=== PATIENT | female | born 1965 ===

== ENCOUNTER 2017-01-18 00:36 | Inpatient (IN) | payer OTHER ==
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
[2017-01-18 03:39] LABS: BASO % 0.3 % (0.0-2.0); EOS # 0.1 K/uL (0.0-0.7); EOS % 1.5 % (0.0-4.0); HEMATOCRIT 37.9 % (34.0-47.0); LYMPH # 2.6 K/uL (1.0-4.3); LYMPH % 41.6 % (20.0-40.0); MEAN CELL VOLUME 64.5 fl (81.0-99.0); MEAN CORPUSCULAR HEMOGLOBIN 20.2 pg (27.0-31.0); MEAN CORPUSCULAR HGB CONC 31.3 g/dL (33.0-37.0); MEAN PLATELET VOLUME 9.3 fl (7.2-11.7); MONO # 0.5 K/uL (0.0-0.8); MONO % 7.5 % (0.0-10.0); NEUT % 49.1 % (50.0-75.0); NRBC % 0.2 % (0.0-0.0); RED CELL DISTRIBUTION WIDTH 26.8 % (11.5-14.5); WHITE BLOOD COUNT 6.2 K/uL (4.8-10.8)
[2017-01-18 03:47] LABS: ALB/GLOB RATIO 1.1 (1.0-2.1); ALKALINE PHOSPHATASE 152 U/L (38-126); ALT/SGPT 41 U/L (9-52); AST/SGOT 76 U/L (14-36); BILIRUBIN,TOTAL 0.8 mg/dl (0.2-1.3); BLOOD UREA NITROGEN 10 mg/dl (7-17); CALCIUM 8.4 mg/dL (8.4-10.2); CARBON DIOXIDE 22 mmol/L (22-30); GFR AFRICAN-AMERICAN > 60; GLUCOSE,RANDOM 84 mg/dL (65-105); POTASSIUM 3.7 MMOL/L (3.6-5.0); SODIUM 156 mmol/l (132-148); TOTAL PROTEIN 7.8 G/DL (6.3-8.2)
[2017-01-18 03:49] LABS: CHLORIDE 112 mmol/L (98-107)
[2017-01-18] MEDS ORDERED: Sodium Chloride 0.9% 500 ML IV STA (04:06)
[2017-01-18 04:07] LABS: ALCOHOL SERUM 437 mg/dl (0-10)
[2017-01-18] MEDS ORDERED: Multivitamin (MVI) 10 ML, Thiamine 100 MG, Folic Acid 1 MG in Sodium Chloride 0.9% 1,00... IV ONE (04:45)
[2017-01-18] MEDS ORDERED: Multivitamin (MVI) 10 ML, Folic Acid 1 MG, Thiamine 100 MG in Dextrose 5%/0.45% NS 1,00... IV ONE (04:46)
[2017-01-18 05:05] LABS: PARTIAL THROMBOPLASTIN TIME 28.3 SECONDS (23.3-32.5)
--- NOTE | 2017-01-18 06:03 | ED PDOC ---
- Laboratory Results Result Diagrams: 01/18/17 02:02 01/18/17 03:30 Urine POC: Negative - ECG O2 Sat by Pulse Oximetry: 98 Medical Decision Making Medical Decision Making: Patient s/o from Quinten Holguin PA-C at 0600 pending sobriety and crisis eval. Patient s/o to Dr. Draper at 0700 pending chemistry and crisis eval. Scribe Attestation: Documented by Magda Kyle acting as a scribe for Simón Tompkins MD. Provider Scribe Attestation: All medical record entries made by the Scribe were at my direction and personally dictated by me. I have reviewed the chart and agree that the record accurately reflects my personal performance of the history, physical exam, medical decision making, and the department course for this patient. I have also personally directed, reviewed, and agree with the discharge instructions and disposition. Disposition - Clinical Impression Clinical Impression: Urinary tract infection, Alcohol abuse, Suicide attempt - POA Present On Arrival: None - Disposition Disposition: Transfer of Care Disposition Time: 07:00 Condition: STABLE Patient Signed Over To: Shade Draper Handoff Comments: pending chemistry and crisis eval
[2017-01-18 06:42] LABS: RBC URINE 3 /hpf (0-3); URINE BACTERIA RARE (<OCC); URINE BILIRUBIN NEGATIVE (NEGATIVE); URINE BLOOD MODERATE (NEGATIVE); URINE COLOR YELLOW (YELLOW); URINE GLUCOSE (UA) NEG (Normal); URINE KETONE NEGATIVE (NEGATIVE); URINE LEUKOCYTE ESTERASE SMALL Leu/uL (Negative); URINE PROTEIN 30 mg/dL (NEGATIVE); URINE UROBILINOGEN 0.2-1.0 mg/dL (0.2-1.0); WBC URINE 25 /hpf (0-5)
[2017-01-18 07:01] LABS: BLOOD UREA NITROGEN 10 mg/dl (7-17); CALCIUM 7.8 mg/dL (8.4-10.2); CARBON DIOXIDE 22 mmol/L (22-30); CHLORIDE 110 mmol/L (98-107); GFR AFRICAN-AMERICAN > 60; GLUCOSE,RANDOM 147 mg/dL (65-105); POTASSIUM 3.1 MMOL/L (3.6-5.0); SODIUM 150 mmol/l (132-148)
--- NOTE | 2017-01-18 07:11 | ED PDOC ---
- Laboratory Results Result Diagrams: 01/18/17 02:02 01/18/17 06:40 Interpretation Of Abn Labs: urine wbc, k low, etoh pos Urine POC: Negative - ECG O2 Sat by Pulse Oximetry: 98 - Radiology X-Ray: Interpreted by Me, Viewed By Me X-Ray Interpretation: No Acute Disease - CT Scan/US head Other Rad Studies (CT/US): Read By Radiologist Other Rad Interpretation: no acute - Progress ED Course And Treament: 710: Stable. Took over care from Dr. Tompkins. Chevy on head ct. He gave potassium. 1034: Medically stable for crisis eval. UTI med given. Hypokalemia med given. 1147: Stable. Crisis will admit. Disposition - Clinical Impression Clinical Impression: Urinary tract infection, Alcohol abuse, Suicide attempt, Depression - POA Present On Arrival: None - Disposition Disposition: Admitted as In-Patient Disposition Time: 11:00 Condition: STABLE
[2017-01-18] MEDS ORDERED: Potassium Chloride 20 mEq ER Tab PO ONE (08:49)
[2017-01-18] MEDS: Potassium Chloride 20 mEq ER Tab PO SCH (09:20)
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
--- NOTE | 2017-01-18 10:34 | RAD ---
HISTORY: Medical clearance. COMPARISON: No prior. FINDINGS: LUNGS: No active pulmonary disease. PLEURA: No significant pleural effusion identified, no pneumothorax apparent. CARDIOVASCULAR: Normal. OSSEOUS STRUCTURES: No significant abnormalities. VISUALIZED UPPER ABDOMEN: Normal. OTHER FINDINGS: None. IMPRESSION: No active disease.
--- NOTE | 2017-01-18 10:46 | RAD ---
PROCEDURE: Left Knee Radiographs. HISTORY: Pain. COMPARISON: None. FINDINGS: BONES: Limited examination. AP, lateral and steep oblique views. No evidence of fracture. JOINTS: Normal. No osteoarthritis. JOINT EFFUSION: None. OTHER FINDINGS: None. IMPRESSION: Normal limited examination.
--- NOTE | 2017-01-18 10:57 | RAD ---
PROCEDURE: Left forearm HISTORY: fall, contusion COMPARISON: None. TECHNIQUE: Standard protocol for this study/examination. FINDINGS: No significant/acute osseous, articular or soft tissue abnormalities. IMPRESSION: No acute findings related to/accounting for the clinical presentation.
[2017-01-18] MEDS ORDERED: Magnesium Hydroxide Susp 30 ml UD PO PRN (20:08)
[2017-01-18] MEDS ORDERED: DiphenhydrAMINE 50 mg/ml Inj IM PRN (20:08)
[2017-01-18] MEDS ORDERED: Alum-Mag Hydrox-Simethicone Susp (30 mL) PO PRN (20:08)
[2017-01-18] MEDS ORDERED: Bismuth Subsalicylate 262 mg/15 ml Sus (240 ml) PO PRN (20:11)
[2017-01-19 08:02] LABS: T4 6.51 ug/dl (5.5-11.0)
[2017-01-19 08:16] LABS: THYROID STIMULATING HORMONE 3.06 mIU/ML (0.46-4.68)
[2017-01-19] MEDS: Multivitamin With Minerals Tab PO SCH (09:13)
[2017-01-19] MEDS: Potassium Chloride 20 mEq ER Tab PO SCH (09:13)
[2017-01-19 09:16] VITALS: RESP 18
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
[2017-01-19] MEDS ORDERED: Iohexol 300 100 ML IJ ONE (20:07)
[2017-01-19] MEDS ORDERED: Sodium Chloride 0.9% 50 ML IV ONE (20:07)
--- NOTE | 2017-01-19 21:12 | PCM.PSYCH ---
Initial Psychiatric Evaluation - Initial Psychiatric Evaluation Chief Complaint (in patient's own words): presented to er after drinking reportedly having suicidal thoughts Patient's Reaction to Hospitalization: verbally agreeable to remain History of Present Illness and Precipitating Events: reports was at home became increasingly depressed a Current Medications: Active Medications Generic Name Dose Route Start Last Admin Trade Name Freq PRN Reason Stop Dose Admin Acetaminophen 650 mg 01/18/17 20:08 01/19/17 00:59 Tylenol 325mg Tab PO 650 mg Q4 PRN Administration pain level 4-7 Al Hydrox/Mg Hydrox/Simethicone 30 ml 01/18/17 20:08 Maalox Plus 30 Ml PO Q4 PRN Dyspepsia Bismuth Subsalicylate 524 mg 01/18/17 20:11 Pepto-Bismol PO Q4 PRN Diarrhea Diphenhydramine HCl 50 mg 01/18/17 20:08 Benadryl IM Q6 PRN Extrapyramidal S/S Unable PO Diphenhydramine HCl 50 mg 01/18/17 20:11 Benadryl PO HS PRN Sleep Folic Acid 1 mg 01/19/17 09:00 01/19/17 09:13 Folic Acid PO 1 mg DAILY [facility] Administration Haloperidol 5 mg 01/18/17 20:08 Haldol PO Q4 PRN Agitation Haloperidol Lactate 5 mg 01/18/17 20:08 Haldol IM Q4 PRN Agitation, Unable to Take PO Lorazepam 2 mg 01/18/17 20:08 01/19/17 00:59 Ativan PO 2 mg Q4 PRN Administration Anxiety/Agitation Lorazepam 2 mg 01/18/17 20:08 Ativan IM Q4 PRN Anxiety/Agitation,Unable PO Lorazepam 1 mg 01/19/17 09:00 01/19/17 16:56 Ativan PO 1 mg TID [facility] Administration Magnesium Hydroxide 30 ml 01/18/17 20:08 Milk Of Magnesia PO HS PRN Constipation Multivitamins/Minerals 1 tab 01/19/17 09:00 01/19/17 09:13 Therapeutic-M Tab PO 1 tab DAILY [facility] Administration Nitrofurantoin 100 mg 01/19/17 22:00 Nitrofurantoin PO Q6 [facility] Potassium Chloride 40 meq 01/18/17 09:00 01/19/17 09:13 K-Dur 20 Meq Er Tab PO 40 meq DAILY [facility] Administration Thiamine HCl 100 mg 01/19/17 09:00 01/19/17 09:16 Vitamin B1 Tab PO 100 mg DAILY [facility] Administration Past Psychiatric History - Past Psychiatric History Prior Professional Help: defers Prior Psychiatric Treatment: defers History of Abuse: defers History of ETOH/Drug Use: reports hx of etoh abuse, reports began drinking approx. 6-7 years ago, became increasing depressed because she is living alone, two adult children have their own families and two minor children are living with pt's mother in the [place], [place]. Pertinent Medical Hx (Current Medical&Sleep Prob, Allergies): Allergies Allergy/AdvReac Type Severity Reaction Status Date / Time No Known Allergies Allergy Verified 01/18/17 00:53 Docusate [Colace] 100 mg PO BID 01/18/17 Melatonin [Melatonin] 5 mg PO HS 01/18/17 Multivitamin [Multi-Vitamin Daily] 1 tab PO DAILY 01/18/17 [place]-3 Fatty Acids/Fish Oil [Fish Oil 1,000 mg Capsule] 1 cap PO BID 01/18/17 Pantoprazole Sodium [Protonix] 40 mg PO BID 01/18/17 Review of Systems - Gastrointestinal Gastrointestinal: Abdominal Pain (PT REPORTS SHE HAS A HISTORY OF CIRRHOSIS) - Psychiatric Psychiatric: Abnormal Sleep Pattern, Anhedonia, Anxiety, Depression, Difficulty Concentrating, Suicidal Ideation Mental Status Examination - Personal Presentation Personal Presentation: Looks younger than stated age - Affect Affect: Constricted - Motor Activity Motor Activity: Calm, Psychomotor Retardation - Reliability in Providing Information Reliability in Providing Information: Fair - Speech Speech: Organized - Mood Mood: Depressed - Formal Thought Process Formal Thought Process: No Impairment - Cognitive Functions Orientation: Person, Place, Situation, Time Sensorium: Alert Attention/Concentration: Attentive Judgement: Imparied, as evidence by: Other Memory: Remote intact, as evidenced by: Other - Risk Risk: Suicidal, Withdrawal - Strength & Assets Inventory Strength & Assets Inventory: Cooperative Additional comments: children reported as leverage - Limitations Limitations: Living alone DSM 5 DX - DSM 5 DSM 5 Diagnosis: Major Depressive Disorder Recurrent Moderate to Severe without Psychosis Substance Abuse: Etoh active Substance Induced Mood Disorder - Recommended/Plan of Treatment Treatment Recommendations and Plan of Treatment: inpt admission per attending md vital signs and clinical observation per protocol and per clinical status Will start Lexapro 5mg po daily Hospitalist Consult Discharge planning in progress Projected ELOS: 5-7 days Prognosis: guarded Discharge Plan and Discharge Criteria: free of suicidal ideations free of notable withdrawal signs and symptoms safe - Smoking Cessation Smoking Cessation Initiated: No Reason for not providing: defers
[2017-01-19] MEDS: Nitrofurantoin 25 MG/5 ML SUSP PO SCH (21:41)
[2017-01-20 08:06] LABS: BASO % 0.9 % (0.0-2.0); EOS # 0.1 K/uL (0.0-0.7); EOS % 3.3 % (0.0-4.0); LYMPH # 0.8 K/uL (1.0-4.3); LYMPH % 22.2 % (20.0-40.0); MEAN CELL VOLUME 64.3 fl (81.0-99.0); MEAN PLATELET VOLUME 9.8 fl (7.2-11.7); MONO # 0.5 K/uL (0.0-0.8); MONO % 14.2 % (0.0-10.0); NEUT % 59.4 % (50.0-75.0); NRBC % 0.3 % (0.0-0.0); RED CELL DISTRIBUTION WIDTH 25.7 % (11.5-14.5); WHITE BLOOD COUNT 3.4 K/uL (4.8-10.8)
[2017-01-20 08:11] LABS: IRON 44 ug/dL (37-170)
[2017-01-20 08:14] LABS: ALB/GLOB RATIO 0.9 (1.0-2.1); ALKALINE PHOSPHATASE 129 U/L (38-126); ALT/SGPT 41 U/L (9-52); AST/SGOT 63 U/L (14-36); BILIRUBIN,TOTAL 1.3 mg/dl (0.2-1.3); BLOOD UREA NITROGEN 8 mg/dl (7-17); CALCIUM 8.6 mg/dL (8.4-10.2); CARBON DIOXIDE 25 mmol/L (22-30); CHLORIDE 103 mmol/L (98-107); GFR AFRICAN-AMERICAN > 60; GLUCOSE,RANDOM 90 mg/dL (65-105); MAGNESIUM 1.8 MG/DL (1.6-2.3); PHOSPHOROUS 4.1 mg/dl (2.5-4.5); POTASSIUM 3.9 MMOL/L (3.6-5.0); SODIUM 140 mmol/l (132-148)
--- NOTE | 2017-01-20 08:42 | CT ---
PROCEDURE: CT Abdomen and Pelvis with contrast HISTORY: Right CVA Tenderness. UA + Nitrates and + LE COMPARISON: None. TECHNIQUE: CT scan of the abdomen and pelvis was performed after intravenous administration of contrast. Oral contrast was not administered. Coronal and sagittal reformatted images were obtained. Contrast dose: 100 mL Omnipaque 300 Radiation dose: Total exam DLP = 469.69 mGy-cm. This CT exam was performed using one or more of the following dose reduction techniques: Automated exposure control, adjustment of the mA and/or kV according to patient size, and/or use of iterative reconstruction technique. FINDINGS: LOWER THORAX: There is bibasilar subsegmental atelectasis. LIVER: The liver is normal in size and there is homogeneous enhancement and diffuse low-attenuation with lobular configuration. No gross lesion or ductal dilatation. GALLBLADDER AND BILE DUCTS: The gallbladder is contracted. PANCREAS: The pancreas is normal in size and there is homogeneous enhancement. No gross lesion or ductal dilatation. SPLEEN: There is mild splenomegaly. No focal lesion. ADRENALS: Both adrenal glands are normal in size without discrete nodule. KIDNEYS AND URETERS: Both kidneys are normal in size and there is homogeneous enhancement without hydronephrosis or focal mass with VASCULATURE: The aorta is normal in caliber. There are large perisplenic and splenorenal varices stahl. BOWEL: The proximal small bowel loops are normal in caliber. There is mild dilatation of fluid-filled mid small bowel loops. There is also fecalization of small bowel contents in mid small bowel loops. The distal small bowel loops are normal in caliber. There is moderate amount of stool scattered throughout the colon. APPENDIX: Surgically absent. PERITONEUM: Small amount of free fluid in the pelvis. No free air. LYMPH NODES: Unremarkable. No enlarged lymph nodes. BLADDER: Unremarkable. REPRODUCTIVE: Unremarkable. BONES: No acute fracture. There is mild degenerative disc disease at L4-5 and L5-S1. OTHER FINDINGS: None. IMPRESSION: 1. Findings are concerning for hepatic cirrhosis with mild splenomegaly and portal hypertension. 2. Mild dilatation of fluid-filled small bowel loops with fecalization of small bowel contents in the mid small bowel loops and moderate stool in the colon may represent chronic stasis. A preliminary report was provided by [facility]. Additional findings as described above.
[2017-01-20] MEDS: Potassium Chloride 20 mEq ER Tab PO SCH (09:38)
[2017-01-20] MEDS: Multivitamin With Minerals Tab PO SCH (09:40)
[2017-01-20] MEDS: Nitrofurantoin 25 MG/5 ML SUSP PO SCH ×3 (09:40→21:32)
[2017-01-21] MEDS: Nitrofurantoin 25 MG/5 ML SUSP PO SCH ×4 (04:30→21:45)
[2017-01-21] MEDS: Potassium Chloride 20 mEq ER Tab PO SCH (10:02)
[2017-01-21] MEDS: Multivitamin With Minerals Tab PO SCH (10:02)
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
[2017-01-22] MEDS: Nitrofurantoin 25 MG/5 ML SUSP PO SCH (04:30)
[2017-01-22] MEDS ORDERED: BENGAY TOP PRN (06:19)
[2017-01-22 06:47] LABS: BASO # 0.1 K/uL (0.0-0.2); BASO % 0.9 % (0.0-2.0); EOS # 0.3 K/uL (0.0-0.7); EOS % 4.3 % (0.0-4.0); LYMPH # 1.4 K/uL (1.0-4.3); LYMPH % 22.5 % (20.0-40.0); MEAN CELL VOLUME 65.6 fl (81.0-99.0); MEAN CORPUSCULAR HEMOGLOBIN 19.8 pg (27.0-31.0); MEAN CORPUSCULAR HGB CONC 30.2 g/dL (33.0-37.0); MEAN PLATELET VOLUME 9.5 fl (7.2-11.7); MONO # 0.6 K/uL (0.0-0.8); MONO % 9.1 % (0.0-10.0); NEUT # 3.9 K/uL (1.8-7.0); NEUT % 63.2 % (50.0-75.0); NRBC % 0.1 % (0.0-0.0); RED CELL DISTRIBUTION WIDTH 26.2 % (11.5-14.5); WHITE BLOOD COUNT 6.2 K/uL (4.8-10.8)
[2017-01-22] MEDS: Multivitamin With Minerals Tab PO SCH (09:04)
[2017-01-22] MEDS: Potassium Chloride 20 mEq ER Tab PO SCH (09:09)
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
[2017-01-22 09:52] VITALS: BP 110/66; PULSE 88; TEMP 97.5; O2SAT 99
== END 2017-01-22 14:30 | disposition home or self-care (01) | DRG 430 ==
LOC: H.ER 00:36 → H.EROBSV 03:15 → OBSVTOIN 11:44 → H.ERHOLD 11:44 → H.PSYCH 18:54
PROVIDERS: ADMIT Psychiatry & Neurology Psychiatry; ATTEND Psychiatry & Neurology Psychiatry
PROC: GZ51ZZZ Individual Psychotherapy, Behavioral (ICD-10-PCS; 2017-01-18)
PROC: GZHZZZZ Group Psychotherapy (ICD-10-PCS; principal; 2017-01-19)
DX: F33.2 Major depressive disorder, recurrent severe without psychotic features (principal); E87.0 Hyperosmolality and hypernatremia; R45.851 Suicidal ideations; F10.129 Alcohol abuse with intoxication, unspecified; K74.60 Unspecified cirrhosis of liver; D50.9 Iron deficiency anemia, unspecified; F19.94 Other psychoactive substance use, unspecified with psychoactive substance-induced mood disorder; N39.0 Urinary tract infection, site not specified; E87.6 Hypokalemia